=== PATIENT | male | born 1985 | race American Indian/Alaskan Native ===

== ENCOUNTER 2020-05-06 06:22 | Emergency (ER) | payer OTHER ==
[2020-05-06] MEDS ORDERED: TENOFOVIR 300 MG TAB PO ONE (06:50)
[2020-05-06] MEDS ORDERED: EMTRICITABINE 200 MG CAP PO ONE (06:51)
[2020-05-06 06:53] VITALS: BP 141/77
--- NOTE | 2020-05-06 07:12 | Emergency Department Report ---
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 They confiscated a needle and syringe containing methamphetamines from an inmate. While testing the substance in the reagent he accidentally stuck himself with a needle while recapping it about 5:50 AM. Patient had some blood come from the site after he pressed on his fingertip. He cleaned the area with water and hydrogen peroxide. He states the needle was likely used by the inmate. He does not know the inmates HIV or hepatitis status. Severity scale (0 -10): 0 - Related Data Previous Rx's Medication Instructions Recorded Last Taken Type Dolutegravir [Tivicay] 50 mg PO QDAY #3 tablet 05/06/20 Unknown Rx Emtricitabine/Tenofovir (Tdf) 2 tab PO DAILY #6 tablet 05/06/20 Unknown Rx [Truvada 100 mg-150 mg Tablet] Ondansetron [Zofran Odt] 4 mg PO Q8HR PRN #14 tab.rapdis 05/06/20 Unknown Rx Allergies Allergy/AdvReac Type Severity Reaction Status Date / Time No Known Allergies Allergy Verified 05/06/20 06:53 ED Review of Systems ROS: Stated complaint: STUCK BY NEEDLE Other details as noted in HPI Comment: All other systems reviewed and negative ED Past Medical Hx - Past Medical History Previous Medical History?: No - Surgical History Past Surgical History?: No - Social History Smoking Status: Former Smoker Substance Use Type: None - Medications Home Medications: Home Medications Medication Instructions Recorded Confirmed Last Taken Type Dolutegravir [Tivicay] 50 mg PO QDAY #3 tablet 05/06/20 Unknown Rx Emtricitabine/Tenofovir (Tdf) 2 tab PO DAILY #6 tablet 05/06/20 Unknown Rx [Truvada 100 mg-150 mg Tablet] Ondansetron [Zofran Odt] 4 mg PO Q8HR PRN #14 tab.rapdis 05/06/20 Unknown Rx ED Physical Exam - General Limitations: No Limitations - Other Other exam information: General: No acute distress Head: Atraumatic Eyes: normal appearance ENT: Moist mucous membranes Neck: Normal appearance, no midline tenderness Chest: Clear to auscultation bilaterally CV: Regular rate and rhythm Abdomen: Soft, normal bowel sounds, nontender, nondistended, no rebound or guarding Back: Normal inspection Extremity: Normal inspection, full range of motion, left thumb puncture wound not visible at this time with no active bleeding Neuro: Alert O x 3, no facial asymmetry, speech clear, no gross motor sensory deficit Psych: Appropriate behavior Skin: No rash ED Course Vital Signs 05/06/20 06:52 Temperature 97.8 F Pulse Rate 63 Respiratory 16 Rate Blood Pressure 141/77 [Left] O2 Sat by Pulse 100 Oximetry ED Medical Decision Making - Lab Data Result diagrams: 05/06/20 07:18 05/06/20 07:18 Lab Results 05/06/20 05/06/20 05/06/20 Range/Units 07:04 07:18 07:18 WBC 3.0 L (4.5-11.0) K/mm3 RBC 4.80 (3.65-5.03) M/mm3 Hgb 14.0 (11.8-15.2) gm/dl Hct 42.6 (35.5-45.6) % MCV 89 (84-94) fl MCH 29 (28-32) pg MCHC 33 (32-34) % RDW 13.2 (13.2-15.2) % Plt Count 197 (140-440) K/mm3 Lymph % (Auto) 34.9 (13.4-35.0) % [place] % (Auto) 9.9 H (0.0-7.3) % Eos % (Auto) 3.5 (0.0-4.3) % Baso % (Auto) 0.5 (0.0-1.8) % Lymph # 1.0 L (1.2-5.4) K/mm3 [place] # 0.3 (0.0-0.8) K/mm3 Eos # 0.1 (0.0-0.4) K/mm3 Baso # 0.0 (0.0-0.1) K/mm3 Seg Neutrophils % 51.2 (40.0-70.0) % Seg Neutrophils # 1.5 L (1.8-7.7) K/mm3 Sodium 141 (137-145) mmol/L Potassium 4.3 (3.6-5.0) mmol/L Chloride 105.0 (98-107) mmol/L Carbon Dioxide 26 (22-30) mmol/L Anion Gap 14 mmol/L BUN 13 (9-20) mg/dL Creatinine 1.0 (0.8-1.5) mg/dL Estimated GFR > 60 ml/min BUN/Creatinine Ratio 13 % Glucose 104 H (75-100) mg/dL Calcium 9.2 (8.4-10.2) mg/dL Total Bilirubin 0.40 (0.1-1.2) mg/dL AST 33 (5-40) units/L ALT 38 (7-56) units/L Alkaline Phosphatase 56 (35-129) units/L Total Protein 7.1 (6.3-8.2) g/dL Albumin 4.3 (3.9-5) g/dL Albumin/Globulin Ratio 1.5 % Urine Color Yellow (Yellow) Urine Turbidity Clear (Clear) Urine pH 5.0 (5.0-7.0) Ur Specific [place] 1.019 (1.003-1.030) Urine Protein <15 mg/dl (Negative) mg/dL Urine Glucose (UA) Neg (Negative) mg/dL Urine Ketones Neg (Negative) mg/dL Urine Blood Neg (Negative) Urine Nitrite Neg (Negative) Urine Bilirubin Neg (Negative) Urine Urobilinogen < 2.0 (<2.0) mg/dL Ur Leukocyte Esterase Neg (Negative) Urine WBC (Auto) 1.0 (0.0-6.0) /HPF Urine RBC (Auto) 2.0 (0.0-6.0) /HPF Urine Mucus Few /HPF - Medical Decision Making Patient had a work-related needlestick. Initial labs obtained. Patient received first dose of antiretrovirals in the ED. Will be provided a 72-hour prescription for antiretrovirals and to follow-up with Workmen's Comp. for additional meds and reevaluation. Also will need to test the inmate (source) if possible. HIV and hepatitis panel pending at disposition Critical Care Time: No Critical care attestation.: If time is entered above; I have spent that time in minutes in the direct care of this critically ill patient, excluding procedure time. ED Disposition Clinical Impression: Needle stick injury of finger Disposition: DC- TO HOME OR SELFCARE Is pt being admited?: No Does the pt Need Aspirin: No Condition: Stable Instructions: Emtricitabine/Tenofovir (By mouth), Dolutegravir (By mouth) Additional Instructions: Take medications as prescribed. Have been provided 3-day supply for HIV prophylaxis. 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
[2020-05-06 07:48] LABS: Bilirubin,Urine NEG (Negative); Blood,Urine NEG (Negative); Color,Urine Yellow (Yellow); Mucus,Urine FEW /HPF; Protein,Urine <15 mg/dL mg/dL (Negative); Urobilinogen,Urine < 2.0 mg/dL (<2.0)
[2020-05-06 08:12] LABS: Basophils % (Auto) 0.5 % (0.0-1.8); Eosinophils # (Auto) 0.1 K/mm3 (0.0-0.4); Eosinophils % (Auto) 3.5 % (0.0-4.3); Hematocrit 42.6 % (35.5-45.6); Lymphocytes % (Auto) 34.9 % (13.4-35.0); Mean Corpuscular HGB Conc 33 % (32-34); Mean Corpuscular Volume 89 fl (84-94); Monocytes # (Auto) 0.3 K/mm3 (0.0-0.8); Monocytes % (Auto) 9.9 % (0.0-7.3); Platelet Count 197 K/mm3 (140-440); Red Cell Distribution Width 13.2 % (13.2-15.2)
[2020-05-06 08:30] LABS: Alanine Aminotransferase 38 units/L (7-56); Albumin 4.3 g/dL (3.9-5); BUN/Creatinine Ratio 13; Blood Urea Nitrogen 13 mg/dL (9-20); Calcium 9.2 mg/dL (8.4-10.2); Hemolysis Index 11
[2020-05-06] MEDS ORDERED: DOLUTEGRAVIR 50 MG TAB PO SCH (09:00)
[2020-05-06 11:36] LABS: Hepatitis B Surface Antigen Non-Reactive (Negative); Hepatitis C Virus Antibody Non-Reactive (NonReactive)
== END 2020-05-06 10:09 | disposition home or self-care (01) ==
LOC: ED 06:22
DX: S69.90XA Unspecified injury of unspecified wrist, hand and finger(s), initial encounter (principal); Z87.891 Personal history of nicotine dependence; Z79.899 Other long term (current) drug therapy; W46.1XXA Contact with contaminated hypodermic needle, initial encounter; Y93.89 Activity, other specified; Y92.89 Other specified places as the place of occurrence of the external cause; Y99.8 Other external cause status
CPT/HCPCS: 36415; 80053; 80074; 81001; 85025; 86689; 99283